=== PATIENT | male | born 1975 | race Caucasian/White ===

== ENCOUNTER 2017-02-04 13:10 | Inpatient (IN) | payer MEDICARE, OTHER ==
--- NOTE | ~2017-02-04 | DS ---
Discharge Summary [facility] [address] [place]. [address] NAME: ANTONI GUTIERREZ : 79 STATUS : DIS IN PAT#: [id number] AGE: 41 ADM/REG DATE : 02/04/17 MR#: [id number] REPORT SERV DATE: 02/23/17 DICTATED BY: ERIN LINDSAY DATE: 02/22/17 REPORT STATUS : Draft TRANSCRIBED BY: DL DATE: 02/22/17 Data Collection from hospitalization DISCHARGE DIAGNOSES: 1. Chronic respiratory failure. 2. Ileus. 3. Abdominal distention-chronic secondary to ileus. 4. Anxiety disorder. 5. Stage 3 chronic kidney disease. 6. Hypertension-controlled. 7. Dysphagia with NG tube. 8. History of arrhythmia (supraventricular tachycardia)/tachycardia. 9. Hyperlipidemia. 10.Quadriplegia. 11.Depression. 12.Obesity. 13.Scoliosis. 14.Insomnia. 15.Agitation disorder. 16.Gastroesophageal reflux disease. 17.Blindness in the left eye. CONSULTATION: Dr. Tom Bonilla. PROCEDURES PERFORMED: CT scan of the abdomen and pelvis without contrast, 02/04/2017. DISCHARGE MEDICATIONS: Artificial tears one drop three times a day, Lioresal 10 mg three times a day, heparin 5000 units subcutaneously three times a day, Lopressor 50 mg twice a day as instructed, Prilosec 20 mg daily, Klonopin 0.5 mg every eight hours as instructed, Zyrtec 10 mg daily, Depo-Provera 150 mg IM at 9 a.m., OCuSOFT one application topically twice a day, Effexor 75 mg daily, Desyrel 75 mg at bedtime, magnesium oxide 500 mg daily, ferrous sulfate 325 mg daily, Lofibra 54 mg daily, DuoNeb inhaled solution one nebulized inhaler twice a day, vitamin B12 1000 mcg daily, Centrum tablet one tablet daily, fish oil 1000 mg daily, Percocet 5/325 one tablet every 12 hours as needed, Gas-X 80 mg every 12 hours as needed. CONDITION AT DISCHARGE: Stable. DISPOSITION: The patient was discharged to [facility] on a pureed diet with thin liquids and activities as instructed. HOSPITAL COURSE: This is a 41-year-old man, who has a history of chronic respiratory failure, who requires nocturnal mechanical ventilation support. He is a resident at [facility] at [facility] and has been for many years. He was sent to the [facility] emergency room with complaints of nausea and vomiting. Abdominal and pelvis CT scan in the emergency room revealed possible small bowel obstruction. IV Zofran was being given as needed. IV fluids had been started. He received a dose of Levaquin and a dose of Rocephin. Urine culture was obtained. Blood pressure was stable. Labetalol would be given as needed. Discharge Summary [facility] [id number] [place]. [address] NAME: ANTONI GUTIERREZ : 79 STATUS : DIS IN PAT#: [id number] AGE: 41 ADM/REG DATE : 02/04/17 MR#: [id number] REPORT SERV DATE: 02/23/17 DICTATED BY: ERIN LINDSAY DATE: 02/22/17 REPORT STATUS : Draft TRANSCRIBED BY: DL DATE: 02/22/17 Creatinine level was 1.13. IV Protonix was continued. He would resume omeprazole once he was back to [facility]. IV morphine would be given as needed for complaints of pain. He would receive Valium if there were issues with muscle spasms. He was seen by Dr. Tom Bonilla. He had been asked to see the patient regarding possible small bowel obstruction. The patient is quadriplegic. CT scan had shown small bowel obstruction with changing caliber of the small bowel in the distal ileum. He was felt to have a partial small bowel obstruction versus ileus. IV fluids were continued as well as bowel rest. KUB was going to be checked. There were no plans for surgery at this time. On 12/09/2016, he had positive output from the ostomy. His abdomen was distended, but soft. KUB was unchanged. His current management was continued. On 02/07/2017, his potassium level was 3.3. Magnesium was 2.0. He had had no further episodes of nausea or vomiting. Serial KUB films would be obtained. Blood pressure was stable. Labetalol was continued as needed. IV Ativan was being given as needed. On the , he was placed on full liquids and oral medications. IV fluids were decreased. KUB revealed the NG tube was in the fundus of the stomach. Chest x-ray showed increasing bibasilar atelectasis. Over the next couple of days, his abdomen became softer and was less distended. He had continued colostomy output. Jevity tube feedings had been started. He could not be weaned from the ventilator at this point. On the , he was tolerating tube feedings. He had no residuals. SCDs remained in place. He tolerated and increased tube feeding rate. The patient had not been able to come off the vent in the daytime. Discharge planning was performed. He had no complaints of breathing difficulty, chest pain, nausea, vomiting, or abdominal pain. Discharge planning continued. The nurse reported that his heart rate had gone up into the 150s, but this improved with labetalol. On 02/15/2017, Klonopin had been increased. Discharge instructions were given. Due to his improved and stable condition, he was discharged to [facility] with the above-stated instructions. Information collected by: Makenna Gonzalez I submit the above information as my discharge summary. TG/DL Erin Lindsay M.D. / [id number] CC: Erin Lindsay M.D. Parker Gonsalez Jr., M.D. [facility]
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
[~2017-02-04 13:10] MED LIST: BACLOFEN20 MG PO; DEPO-PROVER150 MG/ML IM; DUONEB INH; EFFEXXR75 PO; FERROUS SULF325 M1 PO; HEPA50006 SC; KLONO5 PO; LOFIBRA54 MG PO; LOP50 PO; MAGNESIUM OXIDE 500 MG PO; MULTIVIT/MIN PO; OCUSOFT LID SCRUB OPH; PRILO PO; REFRESH OPH; TRAZODONE150 MG PO; VITAMIN B-121000 MC1 SL; ZOSYN375 IV; ZYRTEC ALLGY10 MG PO
[2017-02-04 14:47] LABS: BASOPHILS 0.2 %; BASOPHILS ABSOLUTE 0.04 10/3/uL (0.0-0.16); EOSINOPHILS 1.5 %; EOSINOPHILS ABSOLUTE 0.26 10/3/uL (0.0-0.53); IMMATURE GRANULOCYTES ABSOLUTE 0.16 10/3/uL (0.0-0.11); LYMPHOCYTES 21.4 %; LYMPHOCYTES ABSOLUTE 3.59 10/3/uL (0.67-4.30); MEAN CORPUS HGB CONC 32.3 g/dL (32.0-36.0); MEAN CORPUSCULAR HEMOGLOB 30.4 pg (26.0-34.0); MEAN PLATELET VOLUME 9.6 fL (9.2-13.0); MONOCYTES 6.2 %; MONOCYTES ABSOLUTE 1.04 10/3/uL (0.21-1.20); NEUTROPHILS 69.7 %; NEUTROPHILS ABSOLUTE 11.71 10/3/uL (2.02-8.40); PLATELET COUNT 313 10/3/uL (150-400); RBC DISTRIBUTION WIDTH 14.9 % (12.0-16.0)
[2017-02-04 14:48] LABS: ER CBC TAT 0 Hrs 05 Mins; HEMATOCRIT 53.3 % (40.0-51.0); HEMOGLOBIN 17.2 g/dL (13.6-17.8); MANUAL DIFF NO %; MEAN CORPUSCULAR VOLUME 94.2 fL (80-100); RED CELL COUNT 5.66 10/6/uL (4.7-6.1); WHITE BLOOD CELLS 16.8 10/3/uL (4.5-10.5)
[2017-02-04 15:03] LABS: CALCIUM, SERUM 8.7 MG/DL (8.5-10.4); CHLORIDE, SERUM 103 MMOL/L (96-112); CO2 (CARBON DIOXIDE) 29 MMOL/L (24-34); CREATININE 1.13 MG/DL (0.70-1.30); GFR AFRICAN AMERICAN 94 ML/MIN (>=60); GFR NON AFRICAN AMERICAN 81 ML/MIN (>=60); SGOT(AST) 34 U/L (5-40); SGPT(ALT) 49 U/L (5-65); SODIUM, SERUM 139 MMOL/L (135-148); TOTAL BILIRUBIN 0.4 MG/DL (0-1.2)
[2017-02-04 15:04] LABS: A/G RATIO 0.6 (0.7-1.9); ALBUMIN 3.5 G/DL (3.5-5.0); ALKALINE PHOSPHATASE 237 U/L (45-117); BUN (BLOOD UREA NITROGEN) 14 MG/DL (6-23); GLOBULIN 5.7 G/DL (2.5-4.1); GLUCOSE, SERUM 124 MG/DL (60-99); POTASSIUM, SERUM 4.8 MMOL/L (3.5-5.3); TOTAL PROTEIN 9.2 G/DL (6.0-8.5)
[2017-02-04 16:06] LABS: ASCORBIC ACID (UR NOT ORDER) NEG (NEG); BILIRUBIN, URINE NEGATIVE (NEG); KETONE, URINE NEGATIVE (NEG); LEUKOCYTE ESTERASE(NOT OR LARGE (NEG); NITRITE (URINE) NEG (NEG); WBC (NOT ORDERED) (RFLEX) 45 (0-5)
[2017-02-04 16:07] LABS: ER URINALYSIS TAT 0 Hrs 32 Mins
[2017-02-04 16:16] LABS: PARTIAL THROMBO TIME 26.3 SEC (22.5-37.2); PROTIME (NOT ORD) 13.5 SEC (12.0-14.5)
[2017-02-04] MEDS ORDERED: BACLOFEN20 MG PO (18:09)
[2017-02-04] MEDS ORDERED: ZYRTEC ALLGY10 MG PO (18:10)
[2017-02-04] MEDS ORDERED: HEPA50006 SC (18:10)
[2017-02-04] MEDS ORDERED: AKWA TEARS15 ML OPH (18:11)
[2017-02-04] MEDS ORDERED: DEPO PROVERA IM (18:12)
[2017-02-04] MEDS ORDERED: OCUSOFT LID SCRUB TOP (18:13)
[2017-02-04] MEDS ORDERED: PRILO PO (18:13)
[2017-02-04] MEDS ORDERED: KLONO5 PO (18:13)
[2017-02-04] MEDS ORDERED: TRAZ50 PO (18:14)
[2017-02-04] MEDS ORDERED: EFFEX75 PO (18:14)
[2017-02-04] MEDS ORDERED: LOFIBRA54 MG PO (18:15)
[2017-02-04] MEDS ORDERED: MAGNESIUM OXIDE PO (18:15)
[2017-02-04] MEDS ORDERED: DUONEB INH (18:15)
[2017-02-04] MEDS ORDERED: FERROUS SULF325 M1 PO (18:15)
[2017-02-04] MEDS ORDERED: CYANO1000T PO (18:16)
[2017-02-04] MEDS ORDERED: CENTRUM PO (18:16)
[2017-02-04] MEDS ORDERED: LOP25 PO (18:18)
[2017-02-04] MEDS ORDERED: FISH-EPA1000 MG PO (18:18)
[2017-02-04] MEDS ORDERED: PCET PO (18:19)
[2017-02-04] MEDS ORDERED: GAS-X80 MG PO (18:20)
[2017-02-04] MEDS ORDERED: LOP50 PO (18:55)
[2017-02-04] MEDS ORDERED: PR25 PO (18:59)
[2017-02-04 19:57] LABS: LACTATE 1.3 MMOL/L (0.3-2.4)
[2017-02-05 06:25] LABS: BASOPHILS 0.2 %; BASOPHILS ABSOLUTE 0.02 10/3/uL (0.0-0.16); EOSINOPHILS 1.5 %; EOSINOPHILS ABSOLUTE 0.16 10/3/uL (0.0-0.53); HEMATOCRIT 50.1 % (40.0-51.0); HEMOGLOBIN 16.1 g/dL (13.6-17.8); IMMATURE GRANULOCYTES 0.6 %; IMMATURE GRANULOCYTES ABSOLUTE 0.06 10/3/uL (0.0-0.11); LYMPHOCYTES 13.1 %; LYMPHOCYTES ABSOLUTE 1.38 10/3/uL (0.67-4.30); MEAN CORPUS HGB CONC 32.1 g/dL (32.0-36.0); MEAN CORPUSCULAR HEMOGLOB 29.9 pg (26.0-34.0); MEAN CORPUSCULAR VOLUME 93.1 fL (80-100); MEAN PLATELET VOLUME 9.6 fL (9.2-13.0); MONOCYTES 11.8 %; MONOCYTES ABSOLUTE 1.25 10/3/uL (0.21-1.20); NEUTROPHILS 72.8 %; NEUTROPHILS ABSOLUTE 7.69 10/3/uL (2.02-8.40); PLATELET COUNT 273 10/3/uL (150-400); RBC DISTRIBUTION WIDTH 14.9 % (12.0-16.0); RED CELL COUNT 5.38 10/6/uL (4.7-6.1); WHITE BLOOD CELLS 10.6 10/3/uL (4.5-10.5)
[2017-02-05 06:27] LABS: MANUAL DIFF NO %
[2017-02-05 06:46] LABS: BUN (BLOOD UREA NITROGEN) 17 MG/DL (6-23); CALCIUM, SERUM 8.2 MG/DL (8.5-10.4); CHLORIDE, SERUM 105 MMOL/L (96-112); CREATININE 0.87 MG/DL (0.70-1.30); GFR AFRICAN AMERICAN 126 ML/MIN (>=60); GFR NON AFRICAN AMERICAN 109 ML/MIN (>=60); GLUCOSE, SERUM 120 MG/DL (60-99); PHOSPHORUS, SERUM 2.2 MG/DL (2.5-4.5); POTASSIUM, SERUM 3.9 MMOL/L (3.5-5.3); SODIUM, SERUM 140 MMOL/L (135-148)
[2017-02-05 06:47] LABS: CO2 (CARBON DIOXIDE) 24 MMOL/L (24-34)
[2017-02-06 04:43] LABS: BASOPHILS 0.3 %; BASOPHILS ABSOLUTE 0.02 10/3/uL (0.0-0.16); EOSINOPHILS 3.5 %; EOSINOPHILS ABSOLUTE 0.27 10/3/uL (0.0-0.53); HEMATOCRIT 42.9 % (40.0-51.0); HEMOGLOBIN 13.6 g/dL (13.6-17.8); IMMATURE GRANULOCYTES 0.7 %; IMMATURE GRANULOCYTES ABSOLUTE 0.05 10/3/uL (0.0-0.11); LYMPHOCYTES 16.4 %; LYMPHOCYTES ABSOLUTE 1.26 10/3/uL (0.67-4.30); MANUAL DIFF NO %; MEAN CORPUS HGB CONC 31.7 g/dL (32.0-36.0); MEAN CORPUSCULAR HEMOGLOB 29.8 pg (26.0-34.0); MEAN CORPUSCULAR VOLUME 93.9 fL (80-100); MEAN PLATELET VOLUME 9.5 fL (9.2-13.0); MONOCYTES ABSOLUTE 0.61 10/3/uL (0.21-1.20); NEUTROPHILS 71.1 %; NEUTROPHILS ABSOLUTE 5.46 10/3/uL (2.02-8.40); PLATELET COUNT 240 10/3/uL (150-400); RBC DISTRIBUTION WIDTH 15.1 % (12.0-16.0); RED CELL COUNT 4.57 10/6/uL (4.7-6.1); WHITE BLOOD CELLS 7.7 10/3/uL (4.5-10.5)
[2017-02-06 05:07] LABS: CALCIUM, SERUM 8.3 MG/DL (8.5-10.4); CHLORIDE, SERUM 109 MMOL/L (96-112); CO2 (CARBON DIOXIDE) 27 MMOL/L (24-34); CREATININE 0.63 MG/DL (0.70-1.30); GFR AFRICAN AMERICAN 144 ML/MIN (>=60); GFR NON AFRICAN AMERICAN 124 ML/MIN (>=60); POTASSIUM, SERUM 3.6 MMOL/L (3.5-5.3); SODIUM, SERUM 145 MMOL/L (135-148)
[2017-02-06 05:16] LABS: BUN (BLOOD UREA NITROGEN) 11 MG/DL (6-23); GLUCOSE, SERUM 87 MG/DL (60-99)
[2017-02-07 04:52] LABS: BASOPHILS 0.3 %; BASOPHILS ABSOLUTE 0.02 10/3/uL (0.0-0.16); EOSINOPHILS 3.9 %; EOSINOPHILS ABSOLUTE 0.27 10/3/uL (0.0-0.53); HEMOGLOBIN 12.1 g/dL (13.6-17.8); IMMATURE GRANULOCYTES 0.4 %; IMMATURE GRANULOCYTES ABSOLUTE 0.03 10/3/uL (0.0-0.11); LYMPHOCYTES 17.8 %; LYMPHOCYTES ABSOLUTE 1.22 10/3/uL (0.67-4.30); MEAN CORPUS HGB CONC 31.7 g/dL (32.0-36.0); MEAN CORPUSCULAR HEMOGLOB 29.5 pg (26.0-34.0); MEAN CORPUSCULAR VOLUME 93.2 fL (80-100); MEAN PLATELET VOLUME 9.6 fL (9.2-13.0); MONOCYTES ABSOLUTE 0.62 10/3/uL (0.21-1.20); NEUTROPHILS 68.6 %; NEUTROPHILS ABSOLUTE 4.71 10/3/uL (2.02-8.40); PLATELET COUNT 226 10/3/uL (150-400); WHITE BLOOD CELLS 6.9 10/3/uL (4.5-10.5)
[2017-02-07 04:54] LABS: HEMATOCRIT 38.2 % (40.0-51.0); MANUAL DIFF NO %
[2017-02-07 05:05] LABS: CALCIUM, SERUM 8.3 MG/DL (8.5-10.4); CHLORIDE, SERUM 107 MMOL/L (96-112); CO2 (CARBON DIOXIDE) 28 MMOL/L (24-34); CREATININE 0.61 MG/DL (0.70-1.30); GFR AFRICAN AMERICAN 146 ML/MIN (>=60); GFR NON AFRICAN AMERICAN 126 ML/MIN (>=60); GLUCOSE, SERUM 92 MG/DL (60-99); POTASSIUM, SERUM 3.3 MMOL/L (3.5-5.3); SODIUM, SERUM 144 MMOL/L (135-148)
[2017-02-07 05:06] LABS: BUN (BLOOD UREA NITROGEN) 7 MG/DL (6-23)
[2017-02-08 06:05] LABS: BASOPHILS 0.4 %; BASOPHILS ABSOLUTE 0.03 10/3/uL (0.0-0.16); EOSINOPHILS 4.8 %; EOSINOPHILS ABSOLUTE 0.33 10/3/uL (0.0-0.53); HEMATOCRIT 37.3 % (40.0-51.0); HEMOGLOBIN 12.2 g/dL (13.6-17.8); IMMATURE GRANULOCYTES 0.4 %; IMMATURE GRANULOCYTES ABSOLUTE 0.03 10/3/uL (0.0-0.11); LYMPHOCYTES 19.2 %; LYMPHOCYTES ABSOLUTE 1.32 10/3/uL (0.67-4.30); MANUAL DIFF NO %; MEAN CORPUS HGB CONC 32.7 g/dL (32.0-36.0); MEAN CORPUSCULAR HEMOGLOB 29.5 pg (26.0-34.0); MEAN CORPUSCULAR VOLUME 90.3 fL (80-100); MEAN PLATELET VOLUME 9.4 fL (9.2-13.0); MONOCYTES 7.1 %; MONOCYTES ABSOLUTE 0.49 10/3/uL (0.21-1.20); NEUTROPHILS 68.1 %; NEUTROPHILS ABSOLUTE 4.67 10/3/uL (2.02-8.40); PLATELET COUNT 234 10/3/uL (150-400); RBC DISTRIBUTION WIDTH 14.8 % (12.0-16.0); RED CELL COUNT 4.13 10/6/uL (4.7-6.1); WHITE BLOOD CELLS 6.9 10/3/uL (4.5-10.5)
[2017-02-08 06:12] LABS: BUN (BLOOD UREA NITROGEN) 5 MG/DL (6-23); CHLORIDE, SERUM 105 MMOL/L (96-112); CO2 (CARBON DIOXIDE) 26 MMOL/L (24-34); CREATININE 0.52 MG/DL (0.70-1.30); GFR AFRICAN AMERICAN 156 ML/MIN (>=60); GFR NON AFRICAN AMERICAN 134 ML/MIN (>=60); GLUCOSE, SERUM 89 MG/DL (60-99); POTASSIUM, SERUM 3.1 MMOL/L (3.5-5.3); SODIUM, SERUM 141 MMOL/L (135-148)
[2017-02-09 05:11] LABS: BUN (BLOOD UREA NITROGEN) 4 MG/DL (6-23); CALCIUM, SERUM 8.3 MG/DL (8.5-10.4); CHLORIDE, SERUM 107 MMOL/L (96-112); CO2 (CARBON DIOXIDE) 24 MMOL/L (24-34); CREATININE 0.58 MG/DL (0.70-1.30); GFR AFRICAN AMERICAN 149 ML/MIN (>=60); GFR NON AFRICAN AMERICAN 128 ML/MIN (>=60); GLUCOSE, SERUM 91 MG/DL (60-99); POTASSIUM, SERUM 3.4 MMOL/L (3.5-5.3); SODIUM, SERUM 140 MMOL/L (135-148)
[2017-02-10 05:01] LABS: BASOPHILS 0.3 %; BASOPHILS ABSOLUTE 0.02 10/3/uL (0.0-0.16); EOSINOPHILS 5.3 %; EOSINOPHILS ABSOLUTE 0.38 10/3/uL (0.0-0.53); HEMATOCRIT 38.9 % (40.0-51.0); HEMOGLOBIN 13.3 g/dL (13.6-17.8); IMMATURE GRANULOCYTES 0.7 %; IMMATURE GRANULOCYTES ABSOLUTE 0.05 10/3/uL (0.0-0.11); LYMPHOCYTES 16.1 %; LYMPHOCYTES ABSOLUTE 1.15 10/3/uL (0.67-4.30); MEAN CORPUS HGB CONC 34.2 g/dL (32.0-36.0); MEAN CORPUSCULAR HEMOGLOB 30.9 pg (26.0-34.0); MEAN CORPUSCULAR VOLUME 90.3 fL (80-100); MEAN PLATELET VOLUME 9.2 fL (9.2-13.0); NEUTROPHILS 70.6 %; NEUTROPHILS ABSOLUTE 5.04 10/3/uL (2.02-8.40); PLATELET COUNT 233 10/3/uL (150-400); RBC DISTRIBUTION WIDTH 14.7 % (12.0-16.0); RED CELL COUNT 4.31 10/6/uL (4.7-6.1); WHITE BLOOD CELLS 7.1 10/3/uL (4.5-10.5)
[2017-02-10 05:05] LABS: MANUAL DIFF NO %
[2017-02-10 05:14] LABS: BUN (BLOOD UREA NITROGEN) 4 MG/DL (6-23); CALCIUM, SERUM 8.3 MG/DL (8.5-10.4); CHLORIDE, SERUM 106 MMOL/L (96-112); CO2 (CARBON DIOXIDE) 25 MMOL/L (24-34); CREATININE 0.59 MG/DL (0.70-1.30); GFR AFRICAN AMERICAN 148 ML/MIN (>=60); GFR NON AFRICAN AMERICAN 128 ML/MIN (>=60); GLUCOSE, SERUM 80 MG/DL (60-99); POTASSIUM, SERUM 3.6 MMOL/L (3.5-5.3); SODIUM, SERUM 141 MMOL/L (135-148)
[2017-02-11 03:51] LABS: BE (BASE EXCESS) -2.3 MEQ/L (0 +/- 2.5); CARBOXYHEMOGLOBIN 0.9 % (0-3); HEMOBLOGIN CONTENT 13.1 G/DL (14-18); INSTRUMENT SERIAL # 8083; METHEMOGLOBIN 0.4 % (0-3); MODE SIMV; O2 CONTENT 18.4 VOL% (18-24); OPERATOR ID 16503; PCO2 (CO2 TENSION) 36 MMHG (35-45); PO2 (O2 TENSION) 181 MMHG (79-93); PRESSURE SUPPORT 10 cm.H2O; SAMPLE Arterial
[2017-02-11 03:52] LABS: ALLENS TEST Pos; TIDAL VOLUME 550 ML
[2017-02-11 16:58] LABS: ALBUMIN 2.8 G/DL (3.5-5.0); BUN (BLOOD UREA NITROGEN) 4 MG/DL (6-23); CALCIUM, SERUM 8.4 MG/DL (8.5-10.4); CHLORIDE, SERUM 107 MMOL/L (96-112); CO2 (CARBON DIOXIDE) 24 MMOL/L (24-34); CREATININE 0.55 MG/DL (0.70-1.30); GFR AFRICAN AMERICAN 152 ML/MIN (>=60); GFR NON AFRICAN AMERICAN 131 ML/MIN (>=60); GLUCOSE, SERUM 84 MG/DL (60-99); PHOSPHORUS, SERUM 2.7 MG/DL (2.5-4.5); POTASSIUM, SERUM 3.3 MMOL/L (3.5-5.3); PREALBUMIN 14.5 MG/DL (17.0-43.0); SGOT(AST) 19 U/L (5-40); SGPT(ALT) 23 U/L (5-65); SODIUM, SERUM 140 MMOL/L (135-148); TOTAL BILIRUBIN 0.4 MG/DL (0-1.2)
[2017-02-11 17:01] LABS: A/G RATIO 0.6 (0.7-1.9); ALKALINE PHOSPHATASE 153 U/L (45-117); GLOBULIN 4.5 G/DL (2.5-4.1); TOTAL PROTEIN 7.3 G/DL (6.0-8.5)
[2017-02-14 04:38] LABS: BASOPHILS 0.4 %; BASOPHILS ABSOLUTE 0.03 10/3/uL (0.0-0.16); EOSINOPHILS 4.7 %; EOSINOPHILS ABSOLUTE 0.39 10/3/uL (0.0-0.53); HEMATOCRIT 40.6 % (40.0-51.0); HEMOGLOBIN 13.4 g/dL (13.6-17.8); IMMATURE GRANULOCYTES 0.7 %; IMMATURE GRANULOCYTES ABSOLUTE 0.06 10/3/uL (0.0-0.11); LYMPHOCYTES 17.2 %; LYMPHOCYTES ABSOLUTE 1.43 10/3/uL (0.67-4.30); MEAN CORPUSCULAR HEMOGLOB 29.6 pg (26.0-34.0); MEAN CORPUSCULAR VOLUME 89.6 fL (80-100); MEAN PLATELET VOLUME 9.6 fL (9.2-13.0); MONOCYTES 9.5 %; MONOCYTES ABSOLUTE 0.79 10/3/uL (0.21-1.20); NEUTROPHILS 67.5 %; PLATELET COUNT 280 10/3/uL (150-400); RBC DISTRIBUTION WIDTH 14.6 % (12.0-16.0); RED CELL COUNT 4.53 10/6/uL (4.7-6.1); WHITE BLOOD CELLS 8.3 10/3/uL (4.5-10.5)
[2017-02-14 04:41] LABS: MANUAL DIFF NO %
[2017-02-14 04:50] LABS: BUN (BLOOD UREA NITROGEN) 7 MG/DL (6-23); CALCIUM, SERUM 8.8 MG/DL (8.5-10.4); CHLORIDE, SERUM 105 MMOL/L (96-112); CO2 (CARBON DIOXIDE) 24 MMOL/L (24-34); CREATININE 0.58 MG/DL (0.70-1.30); GFR AFRICAN AMERICAN 149 ML/MIN (>=60); GFR NON AFRICAN AMERICAN 128 ML/MIN (>=60); POTASSIUM, SERUM 3.3 MMOL/L (3.5-5.3); SODIUM, SERUM 139 MMOL/L (135-148)
[2017-02-14 04:51] LABS: GLUCOSE, SERUM 119 MG/DL (60-99)
[2017-02-15 05:50] LABS: BUN (BLOOD UREA NITROGEN) 8 MG/DL (6-23); CALCIUM, SERUM 8.6 MG/DL (8.5-10.4); CHLORIDE, SERUM 105 MMOL/L (96-112); CO2 (CARBON DIOXIDE) 24 MMOL/L (24-34); CREATININE 0.62 MG/DL (0.70-1.30); GFR AFRICAN AMERICAN 145 ML/MIN (>=60); GFR NON AFRICAN AMERICAN 125 ML/MIN (>=60); GLUCOSE, SERUM 119 MG/DL (60-99); POTASSIUM, SERUM 3.9 MMOL/L (3.5-5.3); SODIUM, SERUM 141 MMOL/L (135-148)
[2017-07-02] MEDS ORDERED: HEPA50006 SC (23:36)
[2017-07-02] MEDS ORDERED: ZYRTEC ALLGY10 MG PO (23:36)
[2017-07-02] MEDS ORDERED: HYPOTEARS OPH (23:37)
[2017-07-02] MEDS ORDERED: TRAZODONE150 MG PO (23:38)
[2017-07-02] MEDS ORDERED: EFFEX75 PO (23:38)
[2017-07-02] MEDS ORDERED: MAG OXIDE250 MG PO (23:39)
[2017-07-02] MEDS ORDERED: CYANO1000T PO (23:40)
[2017-07-02] MEDS ORDERED: LOFIBRA54 MG PO (23:40)
[2017-07-02] MEDS ORDERED: MULTIPLE VIT PO (23:40)
[2017-07-02] MEDS ORDERED: DUONEB INH (23:41)
[2017-07-02] MEDS ORDERED: PROMEGA PO (23:41)
[2017-07-02] MEDS ORDERED: REG5 PO (23:41)
[2017-07-02] MEDS ORDERED: BACLOFEN20 MG PO (23:42)
[2017-07-02] MEDS ORDERED: MYCOSCROI TOP (23:42)
[2017-07-02] MEDS ORDERED: PRILO PO (23:42)
[2017-07-02] MEDS ORDERED: I20 PO (23:43)
[2017-07-02] MEDS ORDERED: PCET PO (23:44)
[2017-07-02] MEDS ORDERED: KLONO5 PO (23:44)
[2017-07-02] MEDS ORDERED: PHENERGAN 2525 MG/M1 IM (23:45)
[2017-07-26] MEDS ORDERED: MICRO-K10 MEQ PO (14:04)
[2017-08-08] MEDS ORDERED: HEPA50006 SC (11:28)
[2017-08-08] MEDS ORDERED: CEFT5 PO (12:09)
[2017-08-08] MEDS ORDERED: [UNRECOGNIZED DRUG - SUPPLY] (12:16)
== END 2017-02-15 17:07 | DRG 388 ==
LOC: ER 13:10 → ER/OF 20:07 → MIC 02-05 01:11 → IMCU 02-08 00:51
PROVIDERS: Family Medicine; Internal Medicine Nephrology; Physician Assistant
PROC: 5A1955Z Respiratory Ventilation, Greater than 96 Consecutive Hours (ICD-10-PCS; principal; 2017-02-05)
DX: K56.69 Other intestinal obstruction (principal); G82.50 Quadriplegia, unspecified; J96.10 Chronic respiratory failure, unspecified whether with hypoxia or hypercapnia; N18.3 Chronic kidney disease, stage 3 (moderate); N39.0 Urinary tract infection, site not specified; I12.9 Hypertensive chronic kidney disease with stage 1 through stage 4 chronic kidney disease, or unspecified chronic kidney disease; F41.9 Anxiety disorder, unspecified; G47.00 Insomnia, unspecified; K21.9 Gastro-esophageal reflux disease without esophagitis; H54.12 Blindness, left eye, low vision right eye; M41.9 Scoliosis, unspecified; E87.6 Hypokalemia
CPT/HCPCS: 31720; 36600; 71010; 74000; 74176; 80048; 80053; 81001; 82805; 83605; 83690; 83735; 84100; 84132; 84134; 85025; 85610; 85730; 87040; 87045; 87046; 87046-59; 87086; 87328; 87329; 87493; 87493-59; 87641; 87899; 87899-59; 94002; 94003; 94640; 96374; 99285; A9270-GY; C9113; J1956; J2405; J2765

== ENCOUNTER 2017-07-29 11:15 | Inpatient (IN) | payer MEDICARE, OTHER ==
[~2017-07-29] VITALS: Ht 170.2 cm; Wt 84.3 kg
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
--- NOTE | ~2017-07-29 | HP ---
History And Physical [facility] [address] [place]. [address] NAME: ANTONI ECHEVARRIA : 79 STATUS : ADM IN [facility]#: [id number] AGE: 42 ADM/REG DATE : 07/29/17 MR#: [id number] REPORT SERV DATE: 07/30/17 DICTATED BY: Ariane MONTANEZ DATE: 07/30/17 REPORT STATUS : Draft TRANSCRIBED BY: MODRoe DATE: 07/30/17 DATE OF ADMISSION: 07/29/2017 CHIEF COMPLAINT: Bilateral renal pelvic stones with recent urinary tract infection. HISTORY OF PRESENT ILLNESS: Mr. Echevarria is a 42-year-old white male, quadriplegic, seen by me in June of this year, who was admitted with urosepsis and bilateral stones. His voiding was managed by diaper. I placed bilateral double-J stents and he recovered in his return, but initiate removal of his stones. His original organism was sensitive to meropenem. My plan would be for bilateral nephrostomy tube placements now with a right PCNL on 07/30/2017. The risks and benefits have been discussed exhaustively with the patient and his mother. There were no unanswered questions. PAST MEDICAL HISTORY: 1. Brain injury with quadriparesis. 2. Blindness, left eye. 3. Scoliosis. 4. Depression. 5. GERD. 6. Anemia. 7. Hypertension. 8. Chronic renal insufficiency. 9. Urolithiasis. 10.Volvulus. 11.Chronic respiratory failure. PAST SURGICAL HISTORY: 1. Tracheostomy and PEG tube. 2. Colectomy with ileostomy. 3. Suprapubic catheter placement and removal. 4. Port-A-Cath placement and removal. 5. Multiple spinal procedures with significant hardware. 6. Multiple stone procedures including stents and at least one percutaneous stone removal likely at [place]. 7. Cysto bilateral retrograde bilateral double-J stent placement with stone manipulation on 07/04/2017. HOME MEDICATIONS: Albuterol, Artificial Tears, baclofen, Zyrtec, clonazepam, cyanocobalamin, Lofibra, heparin, magnesium oxide, metoclopramide, multivitamins, nystatin, omega-3 fatty acids, omeprazole, oxycodone, potassium, propranolol, trazodone, venlafaxine. ALLERGIES: NO KNOWN DRUG ALLERGIES. SOCIAL HISTORY: The patient resides in [facility]. He is attended by his mother and stepfather. History And Physical [address] [address] NAME: ANTONI ECHEVARRIA : 79 STATUS : ADM IN PAT#: [id number] AGE: 42 ADM/REG DATE : 07/29/17 MR#: [id number] REPORT SERV DATE: 07/30/17 DICTATED BY: Ariane MONTANEZ DATE: 07/30/17 REPORT STATUS : Draft TRANSCRIBED BY: DL DATE: 07/30/17 FAMILY HISTORY: Negative for urologic disease. REVIEW OF SYSTEMS: Full 12-point review of systems negative except as noted above. PHYSICAL EXAMINATION: GENERAL: The patient is alert, quadriplegic male, on a ventilator chronically. VITAL SIGNS: Afebrile with normal vital signs. HEENT: Blindness as noted above. NECK: Trachea site. CHEST: No respiratory distress. HEART: Regular rate and rhythm. ABDOMEN: Protuberant with a right-sided ileostomy. EXTREMITIES: No edema noted. He is not ambulatory. PSYCHIATRIC: Not currently depressed. IMPRESSION: 1. Bilateral renal stones with recent urosepsis. 2. Quadriplegia. 3. Chronic respiratory failure. 4. Chronic kidney disease. PLAN: 1. On 07/29/2017, bilateral percutaneous nephrostomy tube placement. 2. On 07/30/2017, right percutaneous nephrolithotomy. 3. He will be admitted to ICU due to his ventilator needs. HELDER/DL Ariane Montanez M.D. / [id number] CC: Parker Ko M.D.
--- NOTE | ~2017-07-29 | OP ---
Record Of Operation [facility] [address] [address] NAME: ANTONI GUTIERREZ : 79 STATUS : ADM IN PAT#: [id number] AGE: 42 ADM/REG DATE : 07/29/17 MR#: [id number] REPORT SERV DATE: 07/31/17 DICTATED BY: Ariane MONTANEZ DATE: 07/30/17 REPORT STATUS : Draft TRANSCRIBED BY: DL DATE: 07/30/17 DATE OF PROCEDURE: POOR AUDIO, CUTTING IN AND OUT PREOPERATIVE DIAGNOSIS: Multiple right renal stones, greater than 2 cm in size. POSTOPERATIVE DIAGNOSIS: Multiple right renal stones, greater than 2 cm in size. PROCEDURE: Right percutaneous nephrolithotomy, exchange of double J stent, . . RADIOLOGIST: . COMPLICATIONS: None. DRAINS: . BRIEF HISTORY: is a quadriplegic with history of recent nephrolithiasis. He had bilateral double J stents placed on 07/04/2017, and he is here for percutaneous nephrolithotomy on the right. He had bilateral nephrostomy tubes placed . We discussed the risks of bleeding, infection, anesthesia, injury to adjacent organs, inability to remove all stones, need for adjuvant procedures, need for multiple accesses, etc. There were no unanswered questions. DESCRIPTION OF PROCEDURE: Under excellent general anesthesia, the patient was placed supine on the operating table, arms were padded, padded prepped and draped in standard fashion. entered the room and placed 2 wires into the bladder through the existing ureteral catheter. We left the nephrostomy tube in situ the entire case. Over 1 of the wires, the tract was dilated, and a clear sheath was advanced toward the renal pelvis. Multiple stones were encountered and visualized with the offset lens nephroscope. The ultrasonic wand was then used, however, these stones were resistant to breakage with this apparatus and after trying for 30 or 40 minutes, I gave up and inserted the LithoClast, which as expected I broke them up into multiple fragments. Pulling these fragments out was done a couple of times, but it took so long to regain access to the collecting system that I decided not to use that and reinserted the ultrasonic wand with smaller fragments, although it was slow, these fragments could be broken up and removed, and finally I think the entire collecting system at least to my view was clear. I decided to leave the existing nephrostomy tube in place, and I reinserted the nephroscope and through a 5-Venezuelan open-ended catheter, placed an angled Glidewire down to the bladder. I advanced the catheter, confirmed position in the bladder and then over this wire, I placed a 7-[place]enezuelan x 26 cm Contour double-J stent which coiled nicely in the bladder and ultimately in the renal pelvis. The wound was then closed with interrupted chromic sutures, and the nephrostomy tube was re-affixed to the skin with a 3-0 silk suture. Sterile dressing was applied after the patient was placed supine, and an 18-Venezuelan Neves catheter was placed to Record Of Operation [address] [place]. [address] NAME: ANTONI GUTIERREZ : 79 STATUS : ADM IN PAT#: [id number] AGE: 42 ADM/REG DATE : 07/29/17 MR#: [id number] REPORT SERV DATE: 07/31/17 DICTATED BY: Ariane OMNTANEZ DATE: 07/30/17 REPORT STATUS : Draft TRANSCRIBED BY: MODL DATE: 07/30/17 replace the catheter that he had in prior. He was taken to recovery ultimately to be taken to back to MICU. We will plan an antegrade nephrostogram in the morning with plans to proceed as indicated and schedule his left percutaneous procedure at some point in the future. HELDER/ANA ML Ariane Montanez M.D. / [id number] CC: Parker Ko M.D.
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
[~2017-07-29 11:15] MED LIST changes: +AKWA TEARS15 ML OPH; +CENTRUM PO; +CYANO1000T PO; +DEPO PROVERA IM; +EFFEX75 PO; +FISH-EPA1000 MG PO; +GAS-X80 MG PO; +HYPOTEARS OPH; +I20 PO; +LOP25 PO; +MAG OXIDE250 MG PO; +MAGNESIUM OXIDE PO; +MICRO-K10 MEQ PO; +MULTIPLE VIT PO; +MYCOSCROI TOP; +OCUSOFT LID SCRUB TOP; +PCET PO; +PHENERGAN 2525 MG/M1 IM; +PR25 PO; +PROMEGA PO; +REG5 PO; +TRAZ50 PO
[2017-07-29] MEDS ORDERED: ZYRTEC ALLGY10 MG PO ×2 (11:58→19:20)
[2017-07-29] MEDS ORDERED: REG5 PO ×2 (11:59→19:24)
[2017-07-29] MEDS ORDERED: MYCOSTATAB T (12:02)
[2017-07-29 12:36] LABS: PLATELET COUNT 202 10/3/uL (150-400)
[2017-07-29 12:37] LABS: HEMATOCRIT 41.1 % (40.0-51.0); HEMOGLOBIN 13.2 g/dL (13.6-17.8)
[2017-07-29 12:42] LABS: INTERNATIONAL NORMAL RATI 1.1 UNITS (-); PARTIAL THROMBO TIME 28.2 SEC (22.5-37.2); PROTIME (NOT ORD) 14.2 SEC (12.0-14.5)
[2017-07-29 12:47] LABS: CHLORIDE, SERUM 108 MMOL/L (96-112); CREATININE 0.67 MG/DL (0.70-1.30); GFR AFRICAN AMERICAN 139 ML/MIN (>=60); GFR NON AFRICAN AMERICAN 120 ML/MIN (>=60); GLUCOSE, SERUM 88 MG/DL (60-99); SODIUM, SERUM 139 MMOL/L (135-148)
[2017-07-29 12:48] LABS: BUN (BLOOD UREA NITROGEN) 12 MG/DL (6-23); CALCIUM, SERUM 9.1 MG/DL (8.5-10.4); CO2 (CARBON DIOXIDE) 22 MMOL/L (24-34)
[2017-07-29] MEDS ORDERED: HEPA50006 SC (19:20)
[2017-07-29] MEDS ORDERED: TEARS PLUS OPH (19:21)
[2017-07-29] MEDS ORDERED: EFFEX75 PO (19:22)
[2017-07-29] MEDS ORDERED: TRAZ50 PO (19:22)
[2017-07-29] MEDS ORDERED: LOFIBRA54 MG PO (19:23)
[2017-07-29] MEDS ORDERED: CYANO1000T PO (19:23)
[2017-07-29] MEDS ORDERED: MULTIVIT/MIN PO (19:24)
[2017-07-29] MEDS ORDERED: PROMEGA PO (19:24)
[2017-07-29] MEDS ORDERED: PRILO PO (19:25)
[2017-07-29] MEDS ORDERED: BACLOFEN20 MG PO (19:25)
[2017-07-29] MEDS ORDERED: MAG OXIDE250 MG PO (19:26)
[2017-07-29] MEDS ORDERED: MYCOSCROI TOP (19:26)
[2017-07-29] MEDS ORDERED: DUONEB INH (19:28)
[2017-07-29] MEDS ORDERED: KDUR10 PO (19:28)
[2017-07-29] MEDS ORDERED: I20 PO (19:28)
[2017-07-29] MEDS ORDERED: KLONO5 PO (19:29)
[2017-07-29] MEDS ORDERED: PCET PO (19:29)
[2017-07-30 04:45] LABS: BASOPHILS 0.2 %; BASOPHILS ABSOLUTE 0.02 10/3/uL (0.0-0.16); EOSINOPHILS ABSOLUTE 0.46 10/3/uL (0.0-0.53); HEMATOCRIT 41.8 % (40.0-51.0); HEMOGLOBIN 13.5 g/dL (13.6-17.8); IMMATURE GRANULOCYTES 1.3 %; IMMATURE GRANULOCYTES ABSOLUTE 0.12 10/3/uL (0.0-0.11); LYMPHOCYTES ABSOLUTE 1.38 10/3/uL (0.67-4.30); MEAN CORPUS HGB CONC 32.3 g/dL (32.0-36.0); MEAN CORPUSCULAR HEMOGLOB 29.2 pg (26.0-34.0); MEAN CORPUSCULAR VOLUME 90.5 fL (80-100); MEAN PLATELET VOLUME 9.2 fL (9.2-13.0); MONOCYTES 9.5 %; MONOCYTES ABSOLUTE 0.87 10/3/uL (0.21-1.20); NEUTROPHILS ABSOLUTE 6.35 10/3/uL (2.02-8.40); PLATELET COUNT 180 10/3/uL (150-400); RBC DISTRIBUTION WIDTH 13.9 % (12.0-16.0)
[2017-07-30 04:46] LABS: MANUAL DIFF NO %; RED CELL COUNT 4.62 10/6/uL (4.7-6.1); WHITE BLOOD CELLS 9.2 10/3/uL (4.5-10.5)
[2017-07-30 05:00] LABS: BUN (BLOOD UREA NITROGEN) 9 MG/DL (6-23); CHLORIDE, SERUM 105 MMOL/L (96-112); CO2 (CARBON DIOXIDE) 22 MMOL/L (24-34); CREATININE 0.71 MG/DL (0.70-1.30); GFR AFRICAN AMERICAN 136 ML/MIN (>=60); GFR NON AFRICAN AMERICAN 117 ML/MIN (>=60); GLUCOSE, SERUM 91 MG/DL (60-99); POTASSIUM, SERUM 4.2 MMOL/L (3.5-5.3); SODIUM, SERUM 137 MMOL/L (135-148)
[2017-07-31 01:07] LABS: BASOPHILS 0.4 %; BASOPHILS ABSOLUTE 0.05 10/3/uL (0.0-0.16); EOSINOPHILS 2.9 %; HEMATOCRIT 34.8 % (40.0-51.0); HEMOGLOBIN 11.5 g/dL (13.6-17.8); IMMATURE GRANULOCYTES 0.9 %; IMMATURE GRANULOCYTES ABSOLUTE 0.13 10/3/uL (0.0-0.11); LYMPHOCYTES 12.6 %; LYMPHOCYTES ABSOLUTE 1.73 10/3/uL (0.67-4.30); MANUAL DIFF NO %; MEAN CORPUSCULAR HEMOGLOB 29.4 pg (26.0-34.0); MONOCYTES 7.3 %; NEUTROPHILS 75.9 %; NEUTROPHILS ABSOLUTE 10.44 10/3/uL (2.02-8.40); PLATELET COUNT 168 10/3/uL (150-400); RBC DISTRIBUTION WIDTH 13.8 % (12.0-16.0); RED CELL COUNT 3.91 10/6/uL (4.7-6.1); WHITE BLOOD CELLS 13.8 10/3/uL (4.5-10.5)
[2017-07-31 04:31] LABS: BASOPHILS 0.1 %; BASOPHILS ABSOLUTE 0.01 10/3/uL (0.0-0.16); EOSINOPHILS 3.2 %; EOSINOPHILS ABSOLUTE 0.37 10/3/uL (0.0-0.53); HEMATOCRIT 33.8 % (40.0-51.0); IMMATURE GRANULOCYTES 0.8 %; IMMATURE GRANULOCYTES ABSOLUTE 0.09 10/3/uL (0.0-0.11); LYMPHOCYTES 13.3 %; LYMPHOCYTES ABSOLUTE 1.56 10/3/uL (0.67-4.30); MEAN CORPUS HGB CONC 32.5 g/dL (32.0-36.0); MEAN CORPUSCULAR HEMOGLOB 29.5 pg (26.0-34.0); MEAN CORPUSCULAR VOLUME 90.6 fL (80-100); MEAN PLATELET VOLUME 9.5 fL (9.2-13.0); MONOCYTES 8.9 %; MONOCYTES ABSOLUTE 1.04 10/3/uL (0.21-1.20); NEUTROPHILS 73.7 %; NEUTROPHILS ABSOLUTE 8.65 10/3/uL (2.02-8.40); PLATELET COUNT 161 10/3/uL (150-400); RBC DISTRIBUTION WIDTH 13.9 % (12.0-16.0); RED CELL COUNT 3.73 10/6/uL (4.7-6.1); WHITE BLOOD CELLS 11.7 10/3/uL (4.5-10.5)
[2017-07-31 04:32] LABS: MANUAL DIFF NO %
[2017-07-31 04:43] LABS: CHLORIDE, SERUM 108 MMOL/L (96-112); CO2 (CARBON DIOXIDE) 23 MMOL/L (24-34); GFR AFRICAN AMERICAN 146 ML/MIN (>=60); GFR NON AFRICAN AMERICAN 126 ML/MIN (>=60); GLUCOSE, SERUM 101 MG/DL (60-99); POTASSIUM, SERUM 3.7 MMOL/L (3.5-5.3); SODIUM, SERUM 138 MMOL/L (135-148)
[2017-07-31 04:44] LABS: BUN (BLOOD UREA NITROGEN) 5 MG/DL (6-23)
[2017-07-31 04:45] LABS: CALCIUM, SERUM 7.8 MG/DL (8.5-10.4)
[2017-08-01 05:02] LABS: BASOPHILS 0.1 %; BASOPHILS ABSOLUTE 0.01 10/3/uL (0.0-0.16); EOSINOPHILS 5.2 %; EOSINOPHILS ABSOLUTE 0.43 10/3/uL (0.0-0.53); HEMATOCRIT 30.9 % (40.0-51.0); HEMOGLOBIN 9.7 g/dL (13.6-17.8); IMMATURE GRANULOCYTES 0.7 %; IMMATURE GRANULOCYTES ABSOLUTE 0.06 10/3/uL (0.0-0.11); LYMPHOCYTES 18.7 %; LYMPHOCYTES ABSOLUTE 1.56 10/3/uL (0.67-4.30); MEAN CORPUS HGB CONC 31.4 g/dL (32.0-36.0); MEAN CORPUSCULAR HEMOGLOB 28.8 pg (26.0-34.0); MEAN CORPUSCULAR VOLUME 91.7 fL (80-100); MEAN PLATELET VOLUME 9.6 fL (9.2-13.0); MONOCYTES 9.5 %; MONOCYTES ABSOLUTE 0.79 10/3/uL (0.21-1.20); NEUTROPHILS 65.8 %; NEUTROPHILS ABSOLUTE 5.49 10/3/uL (2.02-8.40); PLATELET COUNT 157 10/3/uL (150-400); RED CELL COUNT 3.37 10/6/uL (4.7-6.1); WHITE BLOOD CELLS 8.3 10/3/uL (4.5-10.5)
[2017-08-01 05:05] LABS: MANUAL DIFF NO %
[2017-08-01 05:24] LABS: A/G RATIO 0.7 (0.7-1.9); ALBUMIN 2.8 G/DL (3.5-5.0); ALKALINE PHOSPHATASE 147 U/L (45-117); BUN (BLOOD UREA NITROGEN) 3 MG/DL (6-23); CALCIUM, SERUM 8.4 MG/DL (8.5-10.4); CHLORIDE, SERUM 108 MMOL/L (96-112); CO2 (CARBON DIOXIDE) 25 MMOL/L (24-34); CREATININE 0.45 MG/DL (0.70-1.30); GFR AFRICAN AMERICAN 164 ML/MIN (>=60); GFR NON AFRICAN AMERICAN 142 ML/MIN (>=60); GLOBULIN 3.8 G/DL (2.5-4.1); GLUCOSE, SERUM 107 MG/DL (60-99); PHOSPHORUS, SERUM 1.8 MG/DL (2.5-4.5); POTASSIUM, SERUM 3.6 MMOL/L (3.5-5.3); SGOT(AST) 24 U/L (5-40); SGPT(ALT) 52 U/L (5-65); SODIUM, SERUM 140 MMOL/L (135-148); TOTAL PROTEIN 6.6 G/DL (6.0-8.5)
[2017-08-01 05:27] LABS: TOTAL BILIRUBIN 0.4 MG/DL (0-1.2)
[2017-08-03 01:15] LABS: SOURCE OF STONE Right Kidney (()); STONE COMPOSITION TWO DNR (())
== END 2017-08-01 19:28 | DRG 659 ==
LOC: ENRESERVTM → ENRESERVDT → ENRESERV → CSSUOP 11:15 → RADHOLD 11:26 → CSSUOP 13:00 → MIC 16:20
PROVIDERS: Anesthesiology; Nurse Practitioner Family
PROC: 0TC03ZZ Extirpation of Matter from Right Kidney, Percutaneous Approach (ICD-10-PCS; principal; 2017-07-29)
PROC: 0TP98DZ Removal of Intraluminal Device from Ureter, Via Natural or Artificial Opening Endoscopic (ICD-10-PCS; 2017-07-29)
PROC: 0T788DZ Dilation of Bilateral Ureters with Intraluminal Device, Via Natural or Artificial Opening Endoscopic (ICD-10-PCS; 2017-07-29)
DX: N13.6 Pyonephrosis (principal); G82.50 Quadriplegia, unspecified; R65.21 Severe sepsis with septic shock; A41.9 Sepsis, unspecified organism; Z99.11 Dependence on respirator [ventilator] status; J96.11 Chronic respiratory failure with hypoxia; Z87.820 Personal history of traumatic brain injury; H54.42 Blindness, left eye, normal vision right eye; M41.9 Scoliosis, unspecified; F32.9 Major depressive disorder, single episode, unspecified; K21.9 Gastro-esophageal reflux disease without esophagitis; I12.9 Hypertensive chronic kidney disease with stage 1 through stage 4 chronic kidney disease, or unspecified chronic kidney disease; N20.0 Calculus of kidney; N18.2 Chronic kidney disease, stage 2 (mild)
CPT/HCPCS: 31720; 50431; 50432; 50695; 71010; 76001; 80048; 80053; 82365; 83735; 84100; 85014; 85018; 85025; 85049; 85610; 85730; 87070; 87075; 87077; 87186; 87205; 87641; 93005; 94002; 94003; 94640; A9270-GY; C1725; C1729; C1758; C1769; C1887; C1894; C2617; J1956; J2185; J2250; J2270; J2370; J2405; J3010; J3475; P9047; Q9967